=== PATIENT | female | born 1965 | race Caucasian/White ===

== ENCOUNTER 2017-12-07 20:22 | Emergency (ER) | payer BC ==
[2017-12-07 20:47] VITALS: TEMP 98.1; BMI 31.1
--- NOTE | 2017-12-07 20:50 | PDOC ---
Attending Attestation - [facility] HPI: 12/07/17 21:40 The patient is a 52 year old female, with a significant past medical history of HLD (noncompliant with medications), who presents to the ED with chest pain and lightheadedness for about 12 hours. The patient describes her pain as "pressure- cracking", localized to the middle of her anterior chest and exacerbated with sitting up. She denies any alleviating factors. She also reports left arm numbness since 1pm today. Secondarily, she reports sinus congestion for about 3 days. She reportedly experienced similar chest pain in the past which "went away on its own". She denies any SOB, fever, chills, nausea, vomiting, diarrhea, constipation. She denies recent travels or risk factors for PE. She denies pleuritic component of her pain. Family Hx: Stroke at 69years (mother), RI at 70years (father) - Physicial Exam PE: 12/07/17 21:43 Constitutional: Awake, alert, oriented. No acute distress. Head: Normocephalic. Atraumatic Eyes: PERRL. EOMI. Conjunctivae are not pale. ENT: Mucous membranes are moist and intact. Posterior pharynx without exudates or erythema. Uvula midline. Neck: Supple. Full ROM. No lymphadenopathy. Cardiovascular: Regular rate. Regular rhythm. S1, S2 regular. Distal pulses are 2+ and symmetric. Pulmonary/Chest: mild anterior chest wall discomfort to palpation. No evidence of respiratory distress. Clear to auscultation bilaterally No wheezing, rales or rhonchi. Abdominal: Soft and non-distended. There is no tenderness. No rebound, guarding or rigidity. No organomegaly. No palpable masses. Good bowel sounds. Back: No CVA tenderness. Musculoskeletal: (+) tenderness to trapezius which reproduces the numbness in upper extremity. No edema. No cyanosis. No clubbing. Full range of motion in all extremities. Nocalf tenderness. Radial/pedal pulses are intact and 2+ bilaterally Skin: Skin is warm and dry. No petechiae. No purpura. Neurological: Alert and oriented to person, place, and time. Cranial nerves II -XII are grossly intact. Normal speech. Strength is grossly symmetric. No sensory deficits. Psychiatric: Good eye contact. Normal interaction, affect and behavior. Documentation prepared by Manuela Lawrence, acting as medical educator for Britney Mariee DO, <Manuela Lawrence - Last Filed: 12/07/17 21:47> - Resident Resident Name: Kenny Abbott - ED Attending Attestation I have performed the following: I have examined & evaluated the patient, The case was reviewed & discussed with the resident, I agree w/resident's findings & plan, Exceptions are as noted - Medical Decision Making 12/07/17 20:50 I, Dr. Britney Mariee DO, attest that this document has been prepared under my direction and personally reviewed by me in its entirety. I further attest, that it accurately reflects all work, treatment, procedures and medical decision -making performed by me. 12/07/17 21:49 a/p: 52 yo female with atypical cp -will check trops x 2 -no PE risk factors -will check cxr -MSK reason for arm pain with trapezius ttp recreating pain to arm -atypical story for ACS -risk factor is noncompliance with HLD meds -ekg nonacute -will monitor and reassess 12/08/17 01:40 repeat trop negative. low risk chest pain stable for d/c to home will give cards follow up as outpt for further eval of cp <Britney Mariee - Last Filed: 12/08/17 01:40> Heart Score/ECG Review - ECG Intrepretation Comment:: 12/07/17 20:50 sinus at 74, nl axis, nl interval, no acute st/t wave findings <Britney Mariee - Last Filed: 12/08/17 01:40>
[2017-12-07] MEDS ORDERED: MAG HYDROX/AL HYDROX/SIMETH 30 ML UNIT-DOSE CUP ONE (21:02)
[2017-12-07] MEDS ORDERED: MAG HYDROX/AL HYDROX/SIMETH 30 ML UNIT-DOSE CUP PO ONE (21:05)
[2017-12-07 21:26] LABS: BASO % 0.8 % (0-2.0); EOS % 2.2 % (0-4.5); HEMATOCRIT 37.1 % (32.4-45.2); HEMOGLOBIN 12.2 GM/dL (10.7-15.3); LYMPH % 33.9 % (8-40); MCH 27.8 pg (25.7-33.7); MEAN CELL VOLUME 84.3 fl (80-96); MEAN PLT VOLUME 7.9 fl (7.5-11.1); MONO % 6.8 % (3.8-10.2); NEUT % 56.3 % (42.8-82.8); PLATELET COUNT 298 K/MM3 (134-434); RDW 13.5 % (11.6-15.6)
--- NOTE | 2017-12-07 21:32 | PDOC ---
History of Present Illness - General Chief Complaint: Chest Pain Stated Complaint: CHEST PAIN Time Seen by Provider: 12/07/17 20:46 History Source: Patient Exam Limitations: No Limitations - History of Present Illness Initial Comments: 12/07/17 21:25 The patient is a 52F with a PMH of HLD (noncompliant with medications) who presents to the ED with 12 hours of CP. The patient describes her pain as retrosternal, pressure-cracking in nature, nonradiating, worse with sitting up, without any alleviating factors. She also endorses L arm numbness since 1pm. She also states that she has been dealing with a sinusitis for 3-4 days. She states that she has been lightheaded all day today, which has happened to the patient in the past. She has had similar CP in the past and it goes away on its own. She was told by her PCP to come to the ER today to evaluate the chest pain acutely. She denies any SOB, fever, chills, nausea, vomiting, diarrhea, constipation. Past History - Past Medical History Allergies/Adverse Reactions: Allergies Allergy/AdvReac Type Severity Reaction Status Date / Time No Known Allergies Allergy Verified 12/07/17 20:41 Home Medications: Ambulatory Orders Atorvastatin Ca [Lipitor (Restricted To Cardiology)] 40 mg PO HS 03/11/13 COPD: No Hypercholesterolemia: Yes - Suicide/Smoking/Psychosocial Hx Smoking Status: No Smoking History: Never smoked Number of Cigarettes Smoked Daily: 0 Review of Systems - Review of Systems Able to Perform ROS?: Yes Comments:: 12/07/17 21:36 GENERAL/CONSTITUTIONAL: No fever or chills. No weakness. HEAD, EYES, EARS, NOSE AND THROAT: No change in vision. No ear pain or discharge. No sore throat. GASTROINTESTINAL: No nausea, vomiting, diarrhea, constipation, or abdominal pain. GENITOURINARY: No dysuria, frequency, hematuria, or change in urination. CARDIOVASCULAR: Positive for chest "pressure cracking". No chest pain, palpitations, or lightheadedness. RESPIRATORY: No cough, wheezing, shortness of breath, or hemoptysis. MUSCULOSKELETAL: No joint or muscle swelling or pain. No neck or back pain. SKIN: No rash or lesions. NEUROLOGIC: No headache, numbness, tingling, weakness, loss of consciousness, or change in strength/sensation. ENDOCRINE: No increased thirst. No abnormal weight change. HEMATOLOGIC/LYMPHATIC: No anemia, easy bleeding, or history of blood clots. ALLERGIC/IMMUNOLOGIC: No hives or skin allergy. Is the patient limited [place]ese proficient: No *Physical Exam - Vital Signs Last Vital Signs Temp Pulse Resp BP Pulse Ox 98.1 F 72 16 148/90 99 12/07/17 20:45 12/07/17 20:45 12/07/17 20:45 12/07/17 20:45 12/07/17 20:45 Heart Score/ECG Review #1 General ECG Interpretation: Sinus Rhythm, Normal Rate, Normal Intervals, No acute ischemic changes Compared to previous ECG there are: No significant change ED Treatment Course - LABORATORY CBC & Chemistry Diagram: 12/07/17 21:10 12/07/17 21:10 - Medications Given in the ED: ED Medications Discontinued Medications Generic Name Dose Route Start Last Admin Trade Name Freq PRN Reason Stop Dose Admin Al Hydroxide/Mg Hydroxide 30 ml 12/07/17 21:05 12/07/17 21:17 Mylanta Oral Suspension - PO 12/07/17 21:06 30 ml ONCE ONE Administration Medical Decision Making - Medical Decision Making 12/07/17 21:43 The patient is a 52F with a PMH of HLD noncompliant with lipitor who presents to the ED with atypical chest complaints. EKG is NSR. Will send labs and imaging. The patient PERC's out for PE. 12/07/17 23:26 Labs WNL. Pt aware that she needs to stay for 4 hours for a repeat trop. 12/08/17 01:40 Repeat trop negative. Pt informed that she should follow up with her PCP and survey operations director. Pt agrees and is ready for d/c. *DC/Admit/Observation/Transfer Diagnosis at time of Disposition: Chest pain, atypical - Discharge Dispostion Disposition: HOME Condition at time of disposition: Stable Admit: No - Referrals Referrals: Kenny Gandhi MD [Staff Physician] - - Patient Instructions Printed Discharge Instructions: DI for Atypical Chest Pain Additional Instructions: Please return to the ER if symptoms persist, worsen, or new symptoms arise. Please follow up with your primary care physician in 2-3 days. Please follow up with the survey operations director, Dr. Gandhi this week. Please return to the ER if you have any signs or symptoms of chest pain, shortness of breath, uncontrollable fever, chills, nausea, vomiting, numbness, tingling, or weakness in any part of your body, changes in vision, or slurred speech. - Post Discharge Activity
[2017-12-07 23:14] LABS: ALBUMIN 3.4 g/dl (3.4-5.0); ANION GAP 9 (8-16); BILIRUBIN,TOTAL 0.2 mg/dL (0.2-1.0); BLOOD UREA NITROGEN 18 mg/dL (7-18); CALCIUM 8.8 mg/dL (8.5-10.1); CHLORIDE 107 mmol/L (98-107); CO2 26 mmol/L (21-32); CREATININE 0.9 mg/dL (0.55-1.02); GLUCOSE,RANDOM 98 mg/dL (74-106); POTASSIUM 4.1 mmol/L (3.5-5.1); SGOT/AST 16 U/L (15-37); SGPT/ALT 22 U/L (12-78); SODIUM 142 mmol/L (136-145); TOT PROT 7.2 g/dl (6.4-8.2)
[2017-12-07 23:17] LABS: ALK PHOS 136 U/L (45-117)
[2017-12-07] MEDS ORDERED: ASPIRIN 81 MG CHEWABLE TABLETS PO ONE (23:18)
[2017-12-08] MEDS ORDERED: ASPIRIN 325 MG TABLET ONE (01:41)
[2017-12-08 01:47] VITALS: BP 125/88; PULSE 77
--- NOTE | 2017-12-08 15:11 | EKG ---
Test Reason : Blood Pressure : / mmHG Vent. Rate : 074 BPM Atrial Rate : 074 BPM P-R Int : 140 ms QRS Dur : 082 ms QT Int : 372 ms P-R-T Axes : 059 065 055 degrees QTc Int : 412 ms NORMAL SINUS RHYTHM NORMAL ECG WHEN COMPARED WITH ECG OF 11-MAR-2013 12:42, NO SIGNIFICANT CHANGE WAS FOUND Confirmed by Donn Huff MD ([id number]) on 12/08/2017 3:11:22 PM Referred By: Confirmed By:Donn Huff MD
== END 2017-12-08 01:47 | disposition home or self-care (01) ==
LOC: JER 20:22
DX: R07.89 Other chest pain (principal); E78.00 Pure hypercholesterolemia, unspecified; Z91.14 Patient's other noncompliance with medication regimen
CPT/HCPCS: 36415; 71045-TC; 80053; 82550; 84484; 84702; 85025; 93005; 93010; 99283-25

== ENCOUNTER 2019-06-21 18:10 | Emergency (ER) | payer BC ==
--- NOTE | 2019-06-21 18:30 | PDOC ---
Rapid Medical Evaluation Chief Complaint: Eye Problem Time Seen by Provider: 06/21/19 18:29 Medical Evaluation: Allergies Allergy/AdvReac Type Severity Reaction Status Date / Time No Known Allergies Allergy Verified 12/07/17 20:41 06/21/19 18:29 HPI:L eye droopiness x2 days PE: no asymetry ORDERS:nothing Discharge Disposition - Diagnosis Eye twitch - Referrals Referrals: Nash Hernandez MD [Primary Care Provider] - - Patient Instructions - Post Discharge Activity
[2019-06-21 19:06] VITALS: BP 151/88; PULSE 73; TEMP 98.5; BMI 33.6
--- NOTE | 2019-06-21 19:43 | PDOC ---
*Physical Exam - Vital Signs Last Vital Signs Temp Pulse Resp BP Pulse Ox 98.5 F 73 16 151/88 99 06/21/19 19:02 06/21/19 19:02 06/21/19 19:02 06/21/19 19:02 06/21/19 19:02 Medical Decision Making - Medical Decision Making 06/21/19 19:43 Patient seen by the advanced practice provider under my direct supervision. Ancillary testing reviewed as necessary. I agree with plan as outlined by the advanced practice provider. *DC/Admit/Observation/Transfer Diagnosis at time of Disposition: Eye twitch - Referrals Referrals: Nash Hernandez MD [Primary Care Provider] - - Patient Instructions - Post Discharge Activity
--- NOTE | 2019-06-21 20:02 | PDOC ---
History of Present Illness - General Chief Complaint: Eye Problem Stated Complaint: Eye irritation Time Seen by Provider: 06/21/19 18:29 History Source: Patient - History of Present Illness Initial Comments: 06/21/19 19:56 54 YEAR OLD female noted to have more droppiness to left eye lid and tearing x2 days. no facial weakness, drooling. denies trauma to eye. denies vision loss / changes. denies chest pain, nausea/ vomiting. patient reports slight headache at this time. Pmhx; high cholesterol 06/21/19 19:58 Past History - Past Medical History Allergies/Adverse Reactions: Allergies Allergy/AdvReac Type Severity Reaction Status Date / Time No Known Allergies Allergy Verified 06/21/19 19:02 Home Medications: Ambulatory Orders Atorvastatin Ca [Lipitor (Restricted To Cardiology)] 40 mg PO HS 03/11/13 COPD: No Hypercholesterolemia: Yes - Suicide/Smoking/Psychosocial Hx Smoking Status: No Smoking History: Never smoked Number of Cigarettes Smoked Daily: 0 Hx Alcohol Use: No Drug/Substance Use Hx: No Review of Systems - Review of Systems Able to Perform ROS?: Yes Is the patient limited [place]ian proficient: No HEENTM: Yes: Other (eye problem) *Physical Exam - Vital Signs Last Vital Signs Temp Pulse Resp BP Pulse Ox 98.5 F 73 16 151/88 99 06/21/19 19:02 06/21/19 19:02 06/21/19 19:02 06/21/19 19:02 06/21/19 19:02 - Physical Exam General Appearance: Yes: Appropriately Dressed HEENT: positive: Other (no eye lid droop noted. able to open and close eyes. PERRLA. snellen 20/25 both eyes) Respiratory/Chest: positive: Lungs Clear, Normal Breath Sounds Gastrointestinal/Abdominal: positive: Normal Bowel Sounds, Soft Musculoskeletal: positive: Normal Inspection Extremity: positive: Normal Capillary Refill, Normal Inspection, Normal Range of Motion Integumentary: positive: Normal Color, Dry, Warm Neurologic: positive: bank guard II-XII NML intact, Fully Oriented, Alert, Normal Mood/ Affect, Normal Response, Motor Strength 5/5 Medical Decision Making - Medical Decision Making 06/21/19 23:17 A: left eye droopiness P: ct head outpatient neurology/ ophthalmology follow up *DC/Admit/Observation/Transfer Diagnosis at time of Disposition: Eyelid retraction or lag - Discharge Dispostion Disposition: HOME Condition at time of disposition: Good - Referrals Referrals: Nash Hernandez MD [Primary Care Provider] - Adam Perkins MD [Staff Physician] - - Patient Instructions Printed Discharge Instructions: Dealing With Eyestrain Additional Instructions: please follow up with neurology and ophthalmology as soon as possible. return to the ER for any worsening symptoms - Post Discharge Activity
== END 2019-06-21 21:39 | disposition home or self-care (01) ==
LOC: JER 18:10
DX: H02.536 Eyelid retraction left eye, unspecified eyelid (principal)
CPT/HCPCS: 70450-TC; 99281-25

== ENCOUNTER 2022-11-09 07:53 | Emergency (ER) | payer BC ==
[2022-11-09 08:08] VITALS: BP 166/84; PULSE 78; RESP 18; TEMP 98; BMI 30.2
== END 2022-11-09 11:58 | disposition home or self-care (01) ==
LOC: JER 07:53
DX: R05.1 Acute cough (principal); R09.81 Nasal congestion; J06.9 Acute upper respiratory infection, unspecified
CPT/HCPCS: 0241U-QW; 99283-25